=== PATIENT | male | born 1970 | race Caucasian/White ===

== ENCOUNTER 2022-11-29 08:00 | Outpatient (CLI) | payer BC, SELFPAY ==
[2022-11-29 09:35] LABS: Hemoglobin A1C* 8.81 % (0-5.6)
== END 2022-11-29 08:01 | disposition home or self-care (01) ==
PROVIDERS: Visit Provider Surgery
DX: E10.621 Type 1 diabetes mellitus with foot ulcer (principal); L97.422 Non-pressure chronic ulcer of left heel and midfoot with fat layer exposed; Z79.4 Long term (current) use of insulin
CPT/HCPCS: 36415; 83036; 97597; 99203

== ENCOUNTER 2022-12-06 10:27 | Outpatient (CLI) | payer BC, SELFPAY | END 2022-12-06 10:28 | disposition home or self-care (01) | LOC: WOUND 10:27 | PROVIDERS: Visit Provider Surgery | DX: E10.621 Type 1 diabetes mellitus with foot ulcer (principal); L97.422 Non-pressure chronic ulcer of left heel and midfoot with fat layer exposed; Z79.4 Long term (current) use of insulin | CPT/HCPCS: 97597 ==

== ENCOUNTER 2022-12-13 07:43 | Outpatient (CLI) | payer BC, SELFPAY | END 2022-12-13 07:44 | disposition home or self-care (01) | LOC: WOUND 07:43 | PROVIDERS: Visit Provider Physician Assistant Surgical | DX: E10.621 Type 1 diabetes mellitus with foot ulcer (principal); L97.422 Non-pressure chronic ulcer of left heel and midfoot with fat layer exposed; Z79.4 Long term (current) use of insulin | CPT/HCPCS: 11042 ==

== ENCOUNTER 2022-12-20 10:33 | Outpatient (CLI) | payer BC, SELFPAY | END 2022-12-20 10:34 | disposition home or self-care (01) | LOC: WOUND 10:33 | PROVIDERS: Visit Provider Surgery | DX: E10.621 Type 1 diabetes mellitus with foot ulcer (principal); L97.422 Non-pressure chronic ulcer of left heel and midfoot with fat layer exposed; Z79.4 Long term (current) use of insulin | CPT/HCPCS: 97597 ==

== ENCOUNTER 2022-12-26 08:25 | Outpatient (CLI) | payer BC, SELFPAY | END 2022-12-26 08:26 | disposition home or self-care (01) | LOC: WOUND 08:26 | PROVIDERS: Visit Provider Nurse Practitioner Family | DX: E10.621 Type 1 diabetes mellitus with foot ulcer (principal); L97.526 Non-pressure chronic ulcer of other part of left foot with bone involvement without evidence of necrosis; M86.672 Other chronic osteomyelitis, left ankle and foot; Z79.4 Long term (current) use of insulin | CPT/HCPCS: 11042; 87070; 87186; 99212 ==

== ENCOUNTER 2022-12-26 09:27 | Outpatient (CLI) | payer BC, SELFPAY ==
--- NOTE | 2022-12-26 09:30 | CRLHL7_ITS ---
For Patients: As a result of the Century Cures Act, medical imaging exams and procedure reports are released immediately into your electronic medical record. You may view this report before your referring provider. If you have questions, please contact your health care provider. Indication: DIABETIC ULCER LEFT FOOT Technique: Left foot 3 views Comparison: None Findings: Chronic deformity of the distal 5th metatarsal likely related to chronic osteomyelitis. There is no acute periostitis. Also chronic deformity at the base of the little toe proximal phalanx. Mild degenerative changes are present at the midfoot. Vascular calcifications. No acute fracture. Impression: Soft tissue ulcer and chronic osteomyelitis changes involving the distal 5th metatarsal and base of the proximal phalanx little toe. No evidence of acute osteomyelitis. Dictated by Juan Jose Schaffer MD @ 12/26/2022 10:55:58 AM (Electronically Signed)
== END 2022-12-26 09:28 | disposition home or self-care (01) ==
LOC: RAD 09:28
PROVIDERS: Visit Provider Nurse Practitioner Family
DX: E10.621 Type 1 diabetes mellitus with foot ulcer (principal); L97.529 Non-pressure chronic ulcer of other part of left foot with unspecified severity
CPT/HCPCS: 73630; 87070; 87186

== ENCOUNTER 2023-01-03 10:34 | Outpatient (CLI) | payer BC, SELFPAY | END 2023-01-03 10:35 | disposition home or self-care (01) | LOC: WOUND 10:34 | PROVIDERS: Visit Provider Surgery | DX: E10.621 Type 1 diabetes mellitus with foot ulcer (principal); L97.526 Non-pressure chronic ulcer of other part of left foot with bone involvement without evidence of necrosis; M86.672 Other chronic osteomyelitis, left ankle and foot; Z79.4 Long term (current) use of insulin | CPT/HCPCS: 99213 ==

== ENCOUNTER 2023-01-11 10:27 | Outpatient (CLI) | payer BC, SELFPAY | END 2023-01-11 10:28 | disposition home or self-care (01) | LOC: WOUND 10:27 | PROVIDERS: Visit Provider Surgery | DX: E11.621 Type 2 diabetes mellitus with foot ulcer (principal); L97.526 Non-pressure chronic ulcer of other part of left foot with bone involvement without evidence of necrosis; M86.672 Other chronic osteomyelitis, left ankle and foot | CPT/HCPCS: 11042 ==

== ENCOUNTER 2023-01-24 10:26 | Outpatient (CLI) | payer BC, SELFPAY | END 2023-01-24 10:27 | disposition home or self-care (01) | LOC: WOUND 10:26 | PROVIDERS: Visit Provider Surgery | DX: E10.621 Type 1 diabetes mellitus with foot ulcer (principal); L97.526 Non-pressure chronic ulcer of other part of left foot with bone involvement without evidence of necrosis; M86.672 Other chronic osteomyelitis, left ankle and foot; Z79.4 Long term (current) use of insulin | CPT/HCPCS: 99213 ==

== ENCOUNTER 2023-01-31 10:32 | Outpatient (CLI) | payer BC, SELFPAY | END 2023-01-31 10:33 | disposition home or self-care (01) | LOC: WOUND 10:32 | PROVIDERS: Visit Provider Surgery | DX: E11.621 Type 2 diabetes mellitus with foot ulcer (principal); L97.526 Non-pressure chronic ulcer of other part of left foot with bone involvement without evidence of necrosis; M86.672 Other chronic osteomyelitis, left ankle and foot | CPT/HCPCS: 97597 ==

== ENCOUNTER 2023-02-14 10:24 | Outpatient (CLI) | payer BC, SELFPAY | END 2023-02-14 10:25 | disposition home or self-care (01) | LOC: WOUND 10:24 | PROVIDERS: Visit Provider Surgery | DX: E10.621 Type 1 diabetes mellitus with foot ulcer (principal); L97.526 Non-pressure chronic ulcer of other part of left foot with bone involvement without evidence of necrosis | CPT/HCPCS: 97597 ==

== ENCOUNTER 2023-02-21 08:44 | Outpatient (CLI) | payer BC, SELFPAY | END 2023-02-21 08:45 | disposition home or self-care (01) | LOC: WOUND 08:44 | PROVIDERS: Visit Provider Surgery | DX: E10.621 Type 1 diabetes mellitus with foot ulcer (principal); L97.526 Non-pressure chronic ulcer of other part of left foot with bone involvement without evidence of necrosis; Z79.4 Long term (current) use of insulin | CPT/HCPCS: 99212 ==